=== PATIENT | male | born 1990 | race African-American/Black ===

== ENCOUNTER 2017-07-12 12:34 | Emergency (ER) | payer SELFPAY ==
--- NOTE | 2017-07-12 13:30 | RAD ---
THREE VIEWS LEFT WRIST: HISTORY: Onset of left wrist pain, difficulty holding anything with left hand. FINDINGS: AP, lateral, and oblique views left wrist were obtained. Images demonstrate a small area of corticated calcification adjacent to the ulnar styloid. This may represent a non-healed distal ulnar fracture which is chronic. No acute left wrist fractures or bony lesions seen. IMPRESSION: Distal ulnar non-healed or developmental osseous density. No acute left rib fractures or bony lesion s seen. POS: [facility]
[2017-07-12] MEDS ORDERED: Ketorolac Tromethamine 30 MG/ML VIAL ONE (13:43)
== END 2017-07-12 14:37 | disposition home or self-care (01) ==
LOC: ERS 12:34
DX: M25.532 Pain in left wrist (principal)
CPT/HCPCS: 96372; J1885